=== PATIENT | female | born 1960 | race Caucasian/White ===

== ENCOUNTER 2019-04-29 06:58 | Observation (INO) | payer OTHER ==
[2019-04-28 18:03] LABS: BASOPHIL % 0.4 % (0-2); PLATELET COUNT 291 x10^3mcL (130-400); RED CELL DISTRIBUTION WIDTH 14.3 % (11.5-14.5)
[~2019-04-29] VITALS: Ht 152.4 cm; Wt 100.7 kg
[2019-04-29 07:21] VITALS: BP 182/72
[2019-04-29] MEDS ORDERED: AMLODIPINE BES2.5 M1 PO (07:56)
[2019-04-29] MEDS ORDERED: AVAPRO150 MG PO (07:57)
[2019-04-29 14:06] VITALS: BP 144/80
[2019-04-29 16:48] VITALS: BP 123/76
[2019-04-29 20:40] VITALS: BP 137/68
[2019-04-30 05:15] VITALS: BP 112/61
[2019-04-30 06:39] LABS: BASOPHIL % 0.3 % (0-2); PLATELET COUNT 228 x10^3mcL (130-400); RED CELL DISTRIBUTION WIDTH 14.4 % (11.5-14.5)
[2019-04-30 06:49] LABS: CALCIUM 8.3 mg/dL (8.5-10.1); CARBON DIOXIDE 29.4 mmol/L (21-32); CHLORIDE SERUM 103 mmol/L (98-107); CREATININE SERUM 0.6 mg/dL (0.6-1.0); GFR1 > 60 mL/min; GLUCOSE SERUM 111 mg/dL (74-106); POTASSIUM SERUM 4.8 mmol/L (3.5-5.1); SODIUM SERUM 139 mmol/L (136-145)
[2019-04-30 07:51] VITALS: BP 113/65
[2019-04-30 11:38] VITALS: BP 109/59
[2019-04-30 13:33] VITALS: BP 109/59
== END 2019-04-30 15:25 | disposition home or self-care (01) ==
LOC: DS 06:58 → OR 07:30 → DS 09:00 → MU 13:26 → DS 14:14 → DU 14:15
PROVIDERS: ADMIT Orthopaedic Surgery
DX: M17.11 Unilateral primary osteoarthritis, right knee (principal)
CPT/HCPCS: 97110-GP; 97116-GP; 97530-GP; G0378; J0690; J1100; J1885; J2270; J2274; J2405; J3490; J7030; Q0092